=== PATIENT | female | born 1955 | race Caucasian/White ===

== ENCOUNTER 2017-05-06 11:40 | Day surgery (SDC) | payer OTHER ==
[~2017-05-06] VITALS: Ht 152.4 cm; Wt 60.3 kg
[2017-05-06 12:46] VITALS: Ht 152.4 cm; Wt 60.3 kg
[2017-05-06 13:26] VITALS: BP 135/62; PULSE 43; RESP 14
--- NOTE | 2017-05-06 14:35 | OPPN ---
Date/Time of Note Date/Time of Note DATE: 05/06/17 TIME: 14:32 Operative Report Preoperative Diagnosis Positive occult blood in stool Postoperative Diagnosis Large sigmoid colon polyp was removed using the snare and electrocautery Operation/Procedure Performed Colonoscopy and polypectomy Clipping of the polypectomy site Surgeon see signature line registered sales assistant None Anesthesia: moderate sedation Estimated blood loss: none Transfusion Required none Specimen Colon polyp Grafts/Implants none Complications none TONY BRAY MD May 06, 2017 14:35
[2017-05-06] MEDS ORDERED: MIDAZOLAM 1 MG/ML 2 ML INJ ONE ×2 (14:39)
[2017-05-06] MEDS ORDERED: FENTAnyl 50 MCG/ML VIAL ONE (14:39)
[2017-05-06] MEDS ORDERED: ATROPINE 1 MG/10 ML SYRINGE ONE (14:40)
--- NOTE | 2017-05-07 12:08 | GILP ---
DATE OF PROCEDURE: NAME OF PROCEDURES: 1. Colonoscopy and polypectomy. 2. Clipping of the polypectomy site. INDICATION FOR THE PROCEDURE: Ms. Jolene Khan is a 61-year-old female patient who was noted to hav e positive occult blood in stool. The patient was scheduled for colonoscopy for further evaluation. The procedure and possible complications are well explained to the patient, she understood and conse nted to the procedure. DESCRIPTION OF PROCEDURE: Under the influence of fentanyl and Versed, the colonoscope was carefully introduced in the rectum and under direct vision, it was advanced all the way to the cecum. FINDINGS: The patient had a large sigmoid colon polyp and it was removed using the snare and electr ocautery. Clipping of the polypectomy site was done to prevent bleeding because of the thick stalk the patient had. She was noted to have diverticulosis of the colon and internal hemorrhoids. She tolerated the procedure very well and there was no complication from the procedure. At the end of the procedures, she was awake with stable vital signs and she was discharged home to the care of her family. IMPRESSION: 1. Colonoscopy all the way to the cecum. 2. Large sigmoid polyp was removed using the snare and electrocautery. 3. Clipping of the polypectomy site was done to prevent bleeding because the patient had a very thi ck stalk. 4. Diverticulosis of the colon. 5. Internal hemorrhoids. PLAN: 1. Await histopathology report. 2. The patient will need followup colonoscopy in 6 months to make sure there are no remnants of the polyp that because of the large size of the polyp and a thick stalk. Dictated By: TONY CHRISTENSEN/KATHLEEN Conf#: [id number] DID#: [id number]
== END 2017-05-06 15:59 | disposition home or self-care (01) ==
LOC: GIL 11:40
PROVIDERS: ATTEND Internal Medicine Gastroenterology
DX: D12.5 Benign neoplasm of sigmoid colon (principal); K64.8 Other hemorrhoids; K57.90 Diverticulosis of intestine, part unspecified, without perforation or abscess without bleeding
CPT/HCPCS: 45380; 88305; J0461; J2250; J3010; Z7610

== ENCOUNTER 2017-11-24 11:14 | Day surgery (SDC) | END 2017-11-24 14:34 | disposition home or self-care (01) ==